=== PATIENT | female | born 1965 | race Caucasian/White ===

== ENCOUNTER → 2016-05-19 | Outpatient (CLI) | payer BC ==
[~2016-05-19] MED LIST: ADVIN25/60 INH; ALBU1AER9 INH; CHOL100010 PO; CYCL0.052 OPB; FERR1TAB23 PO; FLUT50SP14 NAE; LORA24TA7 PO; MONT1TAB3 PO; PANT40TA PO; SERT-234 PO
--- NOTE | 2016-05-19 14:25 | DIAGNOSTIC IMAGING REPORT ---
ULTRASOUND OF THE PELVIS CLINICAL HISTORY: Pelvic pain. COMPARISON STUDY: Pelvic ultrasound dated 03/16/2013. TECHNIQUE: Real-time, grayscale, and color flow sonography of the pelvis is performed both transabdominally and endovaginally. Images are reviewed in the transverse and longitudinal planes. FINDINGS: Uterus: The uterus is surgically absent Ovaries: The ovaries were not visualized on the transabdominal or endovaginal imaging. Pelvis: There is no free fluid in the cul-de-sac. No concerning adnexal lesion is seen. IMPRESSION: 1. The uterus is surgically absent. 2. The ovaries were not visualized. 3. No adnexal abnormality is seen. Electronically signed by: John Paul Keith M.D. 05/19/2016 2:24 PM Dictated Date/Time: 05/19/2016 2:21 PM
== END | disposition home or self-care (01) ==
LOC: C.ULTR 13:23
PROVIDERS: ATTEND Family Medicine
DX: R10.2 Pelvic and perineal pain (principal)

== ENCOUNTER → 2016-06-11 | Outpatient (CLI) | payer BC ==
--- NOTE | 2016-06-11 16:31 | DIAGNOSTIC IMAGING REPORT ---
SI JOINTS 3 OR MORE VIEWS CLINICAL HISTORY: Sacroiliac joint pain. COMPARISON STUDY: No previous studies for comparison. FINDINGS: The sacroiliac joints are intact without evidence for ankylosis. No fracture or suspicious lesion is identified within the visualized skeletal structures. No erosions are identified. IMPRESSION: No significant abnormality of the sacroiliac joints. Electronically signed by: Andrea Cooney M.D. 06/11/2016 4:29 PM Dictated Date/Time: 06/11/2016 4:28 PM
== END | disposition home or self-care (01) ==
LOC: C.RAD 15:43
PROVIDERS: ATTEND Family Medicine
DX: R79.89 Other specified abnormal findings of blood chemistry (principal); R10.2 Pelvic and perineal pain; F32.9 Major depressive disorder, single episode, unspecified; J01.00 Acute maxillary sinusitis, unspecified

== ENCOUNTER → 2016-06-29 | Outpatient (CLI) | payer BC ==
--- NOTE | 2016-06-29 09:05 | DIAGNOSTIC IMAGING REPORT ---
RIGHT HAND 3 VIEWS CLINICAL HISTORY: Joint pain. FINDINGS: 3 views of the right hand are obtained. No prior studies are available for comparison at the time of dictation. The skeletal structures are well mineralized. No fracture is seen. The joint spaces of the hand are well-maintained. No erosive disease is identified. The overlying soft tissues are within normal limits. IMPRESSION: Unremarkable radiographic assessment of the right hand. Electronically signed by: John Paul Keith M.D. 06/29/2016 9:03 AM Dictated Date/Time: 06/29/2016 9:02 AM
--- NOTE | 2016-06-29 09:12 | DIAGNOSTIC IMAGING REPORT ---
LEFT HAND MIN 3 VIEWS ROUTINE CLINICAL HISTORY: M54.5 Intermittent low back painR79.82 CRP [id number] History pain COMPARISON: None. DISCUSSION: The bones and joint spaces appear intact. There is no evidence of fracture, dislocation or bony disease. There is no evidence for soft tissue swelling. IMPRESSION: Negative study. Electronically signed by: Arpan Barlow M.D. 06/29/2016 9:11 AM Dictated Date/Time: 06/29/2016 9:10 AM
--- NOTE | 2016-06-29 09:22 | DIAGNOSTIC IMAGING REPORT ---
LUMBAR SPINE 5 VIEWS HISTORY: M54.5 Intermittent low back painR79.82 CRP [id number] History COMPARISON: None. FINDINGS: There is no fracture. No subluxation. The sacrum is intact. Cholecystectomy. Bilateral L5 spondylolysis without spondylolisthesis. Small endplate osteophytes seen throughout the lumbar spine. However, the disc spaces are relatively preserved for age. IMPRESSION: 1. No fracture or subluxation within the lumbar spine. 2. Bilateral L5 spondylolysis without spondylolisthesis. Electronically signed by: Jesse Guerin M.D. 06/29/2016 9:21 AM Dictated Date/Time: 06/29/2016 9:19 AM
[2016-07-02 04:28] LABS: ALBUMIN 3.9 G/DL (3.8-4.8); ANTI-CENTROMERE AB <1.0 NEG AI (<1.0 NEG); ANTI-SS-A <1.0 NEG AI (<1.0 NEG); ANTI-SS-B <1.0 NEG AI (<1.0 NEG); CYCLIC CITRULLINATED PEPT IGG <16 UNITS (<20); DNA ds CRITHIDIA NEGATIVE (NEGATIVE); GAMMA GLOBULIN 1.3 G/DL (0.8-1.7); MYELOPEROXIDASE AB <1.0 AI (<1.0); Sm Antibody <1.0 NEG AI (<1.0 NEG); TOTAL PROTEIN 7.4 G/DL (6.2-8.3)
== END | disposition home or self-care (01) ==
LOC: C.RAD1850 08:21
PROVIDERS: ATTEND Internal Medicine Rheumatology
DX: N90.89 Other specified noninflammatory disorders of vulva and perineum (principal); M54.5 Low back pain; R79.82 Elevated C-reactive protein (CRP); Z87.09 Personal history of other diseases of the respiratory system; M43.06 Spondylolysis, lumbar region

== ENCOUNTER → 2016-10-23 | Day surgery (SDC) | payer BC ==
[2016-10-16 08:15] VITALS: Ht 160 cm; Wt 103.6 kg
[~2016-10-23] VITALS: Ht 160 cm; Wt 103.6 kg
[~2016-10-23] MED LIST changes: -ADVIN25/60 INH; -CHOL100010 PO; +LIDOCAINE HCL 2% 2 ML VIAL (20MG/ML) ONE; -MONT1TAB3 PO; +PROPOFOL IV EMULSION 10 MG/ML 20 ML VIAL IV ONE
--- NOTE | 2016-10-23 11:14 | Endo History and Physical ---
History & Physical Date of Service: Oct 23, 2016. Chief Complaint: Screening Referring Physician: Susana Reilly History of Present Illness 51 yo CF who presents for screening colonoscopy. Past Surgical History Hx Cardiac Surgery: No Hx Internal Defibrillator: No Hx Pacemaker: No Hx Abdominal Surgery: Yes (, PARTIAL HYSTER, GRISELDA) Hx of Implantable Prosthesis: No Hx Post-Op Nausea and Vomiting: No Hx Cancer Surgery: No Hx Thoracic Surgery: No Hx Orthopedic: No Hx Urinary Tract Surgery: No Family History None Social History Smoking Status: Never Smoker Hx Substance Use: No Hx Alcohol Use: No Allergies Coded Allergies: Adhesives (Verified Allergy, Unknown, contact dermatitis, 10/16/16) Clarithromycin (Verified Allergy, Unknown, RINGING IN EARS, 10/16/16) Penicillins (Verified Allergy, Unknown, ALLERGY WAS SHOWN ON ALLERGY TESTING, 10/16/16) Current Medications Reported Home Medications Medications Dose Route/Sig Max Daily Dose Days Date Category Iron (Ferrous Sulfate) 325 Mg Tab 1 Tab PO WK 10/16/16 Reported Restasis (Cyclosporine (Ophth)) 0.05 % Emu 1 Drop OPB QAM 10/16/16 Reported Zoloft (Sertraline HCl) 100 Mg Tab 100 Mg PO QAM 10/16/16 Reported Claritin-D 24 Hour (Loratadine/Pseudoephedrine Sulfate) 1 Tab Tab 1 Tab PO QAM 04/24/13 Reported Flonase Nasal [place] (Fluticasone Propionate) 120 Sprays/6000 Mcg Inha 2 Sprays MEL QAM 04/18/13 Reported Proair Hfa (Albuterol) Aers 2 Puffs INH Q4 PRN 04/18/13 Reported Protonix (Pantoprazole Sodium) 40 Mg Tab 1 Tab PO BID 10/26/08 Reported Vital Signs Weight (Kilograms): 103.64 Height (Feet): 5 Height (Inches): 3 Date Time Temp Pulse Resp B/P (MAP) Pulse Ox O2 Delivery O2 Flow Rate FiO2 10/23/16 10:10 36.8 71 16 140/80 (100) 96 Room Air Physical Exam General Appearance: WD/WN, no apparent distress Respiratory/Chest: Auscultation: breath sounds normal Cardiovascular: Heart Auscultation: RRR Abdomen: Bowel Sounds: normal Inspection & Palpation: soft, non-distended, no tenderness, guarding & rebound Assessment and Plan Assessment: 51 yo CF who presents for screening colonoscopy. Plan: Proceed with colonoscopy.
--- NOTE | 2016-10-23 11:40 | Anesthesiology Progress Note ---
Anesthesia Post Op Note Date & Time Oct 23, 2016 at 11:40 Vital Signs Vital Signs Past 12 Hours Date Time Temp Pulse Resp B/P (MAP) Pulse Ox O2 Delivery O2 Flow Rate FiO2 10/23/16 10:10 36.8 71 16 140/80 (100) 96 Room Air Notes Mental Status: alert / awake / arousable, participated in evaluation Pt Amnestic to Procedure: Yes Nausea / Vomiting: adequately controlled Pain: adequately controlled Airway Patency, RR, SpO2: stable & adequate BP & HR: stable & adequate Hydration State: stable & adequate Anesthetic Complications: no major complications apparent
--- NOTE | 2016-10-23 11:41 | Discharge Instructions ---
Endoscopy Patient Instructions Date / Procedure(s) Performed Oct 23, 2016. Colonoscopy Allergy Information Coded Allergies: Adhesives (Verified Allergy, Unknown, contact dermatitis, 10/16/16) Clarithromycin (Verified Allergy, Unknown, RINGING IN EARS, 10/16/16) Penicillins (Verified Allergy, Unknown, ALLERGY WAS SHOWN ON ALLERGY TESTING, 10/16/16) Discharge Date / Findings Oct 23, 2016. Colon polyps Rectal polyp Diverticulosis Internal hemorrhoids Medication Instructions OK to resume all medications today as prescribed Reported Home Medications Medications Dose Route/Sig Max Daily Dose Days Date Category Iron (Ferrous Sulfate) 325 Mg Tab 1 Tab PO WK 10/16/16 Reported Restasis (Cyclosporine (Ophth)) 0.05 % Emu 1 Drop OPB QAM 10/16/16 Reported Zoloft (Sertraline HCl) 100 Mg Tab 100 Mg PO QAM 10/16/16 Reported Claritin-D 24 Hour (Loratadine/Pseudoephedrine Sulfate) 1 Tab Tab 1 Tab PO QAM 04/24/13 Reported Flonase Nasal [place] (Fluticasone Propionate) 120 Sprays/6000 Mcg Inha 2 Sprays MEL QAM 04/18/13 Reported Proair Hfa (Albuterol) Aers 2 Puffs INH Q4 PRN 04/18/13 Reported Protonix (Pantoprazole Sodium) 40 Mg Tab 1 Tab PO BID 10/26/08 Reported Provider Instructions Activity Restrictions - No exercising or heavy lifting for 24 hours. - Do not drink alcohol the day of the procedure. - Do not drive a car or operate machinery until the day after the procedure. - Do not make any important decisions or sign important papers in 24 hours after the procedure. Following Day: - Return to full activity which may include returning to work/school. Diet Start your diet with liquids and light foods (jello, soup, juice, toast). Then eat your usual diet if not nauseated. Treatment For Common After Affects For mild abdominal pain, bloating, or excessive gas: - Rest - Eat lightly - Lie on right side Follow-Up Information Follow-up with Susana Reilly as scheduled Anesthesia Information What You Should Know You have had a procedure that required some medicine to reduce anxiety and discomfort. This treatment is called moderate sedation. After receiving the treatment, you may be sleepy, but you will be able to breathe on your own. The effects of the treatment may last for several hours. Follow these instructions along with Activity/Diet recommendations noted above: * Do NOT do anything where dizziness or clumsiness would be dangerous. * Rest quietly at home today, then you can be up and about tomorrow. * Have a responsible person stay with you the rest of today. * You may have had an I.V. today. If so, you may take the dressing off later today. Recommendations Call your doctor if: * Trouble breathing * Continuous vomiting for more than 24 hours * Temperature above 101 degrees * Severe abdominal pain or bloating * Pain not relieved by pain medicine ordered * There is increased drainage or redness from any incision * A large amount of rectal bleeding greater than 2-3 tablespoons. (If you had a polyp/s removed or have hemorrhoids, a small amount of blood - from the rectum is to be expected.) * You have any unanswered questions or concerns. IN THE EVENT OF A SERIOUS EMERGENCY, GO TO THE NEAREST EMERGENCY ROOM Your discharge instructions were prepared by provider Elton Feliciano. Patient Instructions Signature Page Serena Garcia Patient (or Guardian) Signature/Date: I have read and understand the instructions given to me by my caregivers. Caregiver/RN/Doctor Signature/Date: The above-named patient and/or guardian has received patient instructions on this date. + Original Patient Signature Page (only) stays with chart. Please make copy for patient.
--- NOTE | 2016-10-23 11:49 | GI REPORT ---
Procedure Date: 10/23/2016 10:51 AM Procedure: Colonoscopy Indications: Screening for colorectal malignant neoplasm Medicines: Monitored Anesthesia Care Complications: No immediate complications. Estimated Blood Loss: Estimated blood loss: none. Procedure: Pre-Anesthesia Assessment: - Prior to the procedure, a History and Physical was performed, and patient medications and allergies were reviewed. The patient's tolerance of previous anesthesia was also reviewed. The risks and benefits of the procedure and the sedation options and risks were discussed with the patient. All questions were answered, and informed consent was obtained. Prior Anticoagulants: The patient has taken no previous anticoagulant or antiplatelet agents. ASA Grade Assessment: III - A patient with severe systemic disease. After reviewing the risks and benefits, the patient was deemed in satisfactory condition to undergo the procedure. After I obtained informed consent, the scope was passed under direct vision. Throughout the procedure, the patient's blood pressure, pulse, and oxygen saturations were monitored continuously. The On-site loaner was introduced through the anus and advanced to the terminal ileum. The colonoscopy was performed without difficulty. The patient tolerated the procedure well. The quality of the bowel preparation was good. The terminal ileum, ileocecal valve, appendiceal orifice, and rectum were photographed. Findings: Three sessile polyps were found in the rectum and in the cecum. The polyps were 6 to 9 mm in size. These polyps were removed with a hot snare. Resection and retrieval were complete. To prevent bleeding after the polypectomy, one hemostatic clip was successfully placed (MR conditional). There was no bleeding at the end of the procedure. Multiple small-mouthed diverticula were found in the sigmoid colon. Non-bleeding internal hemorrhoids were found during retroflexion. The hemorrhoids were small. Impression: - Three 6 to 9 mm polyps in the rectum and in the cecum, removed with a hot snare. Resected and retrieved. Clip (MR conditional) was placed. - Diverticulosis in the sigmoid colon. - Non-bleeding internal hemorrhoids. Recommendation: - Resume previous diet. - Continue present medications. - Repeat colonoscopy for surveillance based on pathology results. - Return to primary care physician as previously scheduled. Elton Feliciano DO 10/23/2016 11:48:33 AM This report has been signed electronically. Note Initiated On: 10/23/2016 10:51 AM I attest to the content of the Intraoperative Record and orders documented therein, exceptions below
[2016-10-23 12:10] VITALS: BP 113/70; PULSE 68; O2SAT 96
== END | disposition home or self-care (01) ==
LOC: C.GI 09:41
PROVIDERS: ATTEND Internal Medicine
DX: Z12.11 Encounter for screening for malignant neoplasm of colon (principal); D12.0 Benign neoplasm of cecum; K62.1 Rectal polyp; K57.30 Diverticulosis of large intestine without perforation or abscess without bleeding; K64.8 Other hemorrhoids; Z79.899 Other long term (current) drug therapy